=== PATIENT | female | born 1975 | race Caucasian/White ===

== ENCOUNTER 2018-02-03 05:21 | Day surgery (SDC) | payer BC, SELFPAY ==
[2018-01-29 11:53] LABS: Hematocrit 44.8 % (37-47); Hemoglobin 15.2 g/dl (12.0-15.0); Mean Corp Hgb Conc 33.9 g/gl (32-36); Mean Corpuscular Hgb 30.7 pg (27.0-32.0); Mean Corpuscular Volume 90.5 fL (81-99); Mean Platelet Vol. 9.3 fl (6.2-12.0); Platelet Count 340 K/mm3 (150-450); RBC Distribution Width CV 12.7 % (11.6-14.6); RBC Distribution Width SD 41.4 fl (35.1-43.9); Red Blood Count 4.95 M/mm3 (4.2-5.4); Scan Indicated on CBC? Y/N NO; White Blood Count 7.8 K/mm3 (4.4-11.0)
[2018-01-29 11:58] LABS: International Normalized Ratio 1.1; Prothrombin Time (Protime)PT. 14.3 SECONDS (11.7-14.9)
[2018-01-29 11:59] LABS: Partial Thromboplast Time 31.6 Seconds (24.1-36.2)
[2018-01-29 12:26] LABS: Creatinine, Serum 0.76 mg/dL (0.55-1.02); EST Glomerular Filtration Rate 90 mL/min (>60); Est Glom Filt Rate - Afr Amer 108 mL/min (>60)
--- NOTE | 2018-02-02 19:02 | PCM.HP.BLA ---
History and Physical Date of Admission: 02/03/18 Surgical History and Physical Rebekah Manzo, a 42 year old female 3 0 0 0 3, presents for Robotic Assisted Vaginal Hysterectomy/ BS/Possible Right Oophrectomy on February 03, 2018 at 7:30. -- Dysmenorrhea; Menorrhagia s/p ablation -- Heavy, painful menses. States this started over 2 years ago. The first couple days of her period is very painful. Almost unbearable. States the bleeding is heavier, changing a pad q 3 hours on the heavy days. She denies painful or problematic bowel issues. UTERUS: 10.2 x 6.1 x 5.6 cm; RIGHT OVARY: 1.7 x 1.5 x 1.5 cm; LEFT OVARY: 2.1 x 1.7 x 2.1 cm. Since ablation, she has pain that occurs monthly, correlating with her menses, on her R side. It radiates down her leg, to her knee. It is worsening. Prior tubal ligation also. C section deliveries. Occurs only when she is bleeding during her cycle. NSAIDs are not effective, barely take the edge off. Pain is worsening, becoming unbearable. She has tried OCP. ablation without relief of pain. 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 MEDICATIONS HISTORY: Current medications prescribed by our practice are: 1. albuterol sulfate HFA 90 mcg/actuation aerosol inhaler, 2 puffs q 4 hr prn ALLERGIES: NKA and No Known Drug Allergies Infections - Chicken pox Illnesses - Asthma, carpal tunnel and both wrists Accidents - no injuries of consequence Hospitalizations - Childbirth depression, anxiety; Review of Systems: GENERAL - Denies fever, or chills SKIN - Denies skin changes EYES - Denies visual changes EARS - Denies difficulty hearing NOSE - Denies nasal congestion or bleeding MOUTH - Denies sore throat or difficulty swallowing NECK - Denies pain or swelling RESPIRATORY - Denies shortness of breath or wheezing CARDIOVASCULAR - Denies palpitations or chest pain GASTROINTESTINAL - Denies nausea, vomiting, diarrhea, constipation GENITOURINARY - Denies dysuria, frequency of urination, incontinence of urine MUSCULOSKELETAL - Denies joint or muscle pain NEUROLOGICAL - Denies localized numbness or weakness PSYCHIATRIC - Denies depression or anxiety ENDOCRINE - Denies heat or cold intolerance, weight loss or gain HEMATO-IMMUNOLOGIC - Denies excessive bleeding with cuts SOCIAL HISTORY: Alcohol Use - RARELY Smoking - quit, 2012 Diet - no special diet Lifestyle - Remarried Exercise - none Seat Belt Use - most of the time 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 Mother: age 41 and Breast cancer. MENSTRUAL HISTORY: LMP Known?- Approximate-Month KnownAmount/Duration - 7 days, Regularity - Regular, Frequency - monthly days, LMP - 01/20/18, Age Onset Menarche - 14 PAST PREGNANCIES: Total Pregnancies - 3; Full Term Pregnancies - 3; Premature - 0; Abortions, Induced - 0; Abortions, Spontaneous - 0; Ectopics - 0; Multiple Births - 0; Living Children - 3 SURGICAL HISTORY: 1. , x 2 ; - 2. 05/17/2009 and Tubal ; Nidia Berrios M.D. - 3. 12/09/2015 hysteroscopy, D and C, Novasure ablation ; Nidia Berrios M.D. - PHYSICAL EXAM BP- 132/82 Sitting, Left arm, regular cuff Weight- 192.10081 lbs Height- 66 inch BMI:31.05 CONSTITUTIONAL - NAD, well nourished, and well developed HEENT - Normocephalic, PERRLA, EOMI NECK - no nuchal rigidity EXTREMITIES - No edema or calf tenderness NEUROLOGICAL - Cranial nerves II-XII grossly intact PSYCHIATRIC - A and O to time, place, person, mood and affect External Genital Vagina - non-tender without lesions Urethra/Urethral Meatus - non-tender Bladder - non-tender Vagina - vaginal parsons are pink and moist without loss of rugae and no evidence of atropy and scant blood noted Cervix - without cervical motion tenderness and has normal size and features without evident lesions Uterus - normal size, mobile and no tenderness Adnexa - no tenderness, no masses and mobile ASSESSMENT/PLAN: 1. Dysmenorrhea, Unspecified, Excessive bleeding in the premenopausal period, Other Specified Counseling and Other Specified Irregular Menstruation S/P endometrial ablation and trial of OCP, Maryam. With continued pelvic pain, present nearly continually. Reviewed options for hysterectomy. All C section deliveries, prior BTO. No future fertility desired. Discussed RAVH vs VILLA. Prefers to proceed with RAVH, bilateral salpingectomy NESTOR. Has cyclic RLQ pain so will also do RSO if possible. Discussed RBAs including possible need for laparotomy.
[2018-02-03] VITALS (13 sets, daily range): BP systolic 102–124; BP diastolic 58–83; PULSE 46–98; RESP 14–18; TEMP 36.2–36.7; O2SAT 95–100; BMI 31.5
--- NOTE | 2018-02-03 | HYST_PTH ---
PATIENT: POHELIA KOCH [place] [facility] [place][id number] AGE/SX: 42/F ROOM: RE02/03/[address]: Dr. Florian Warren MD : [id number] BED: DIS: 02/04/2018 SPEC #: [id number] RECD: 02/03/18 14:31 STATUS: CHANDANA NIRAV #: [id number] HERMELINDO: 02/03/18 00:[address]: Florian Warren DEPT: SURGICAL PATHOLOGY RECD BY: Joe Membreno ENTERED: 02/03/18 14:31 SP TYPE: HYSTERECT OTHR DR: Dr. Luiz Person DO Tissues: Uterus, NOS Procedures: Surgery Specimen Level V HEADER OPERATION: Laparoscopic robotic vaginal hysterectomy, bilateral salpinge PRE-OP DIAGNOSIS: Dysmenorrhea TISSUE SUBMITTED: Uterus, cervix, bilateral fallopian tubes and right ovary MICROSCOPIC DIAGNOSIS Uterus, cervix, bilateral fallopian tubes and right ovary: Cervix - mild chronic cystic cervicitis. Endometrium - proliferative endometrium to mildly disorder proliferative endometrium. Myometrium - diffuse adenomyosis. - Intramural leiomyoma (1 cm in greatest dimension). Bilateral fallopian tubes - no pathologic diagnosis. Right ovary - physiologic follicular and corpus luteum cysts. Left paratubal cyst. SJ:sp 02/04/18 MICROSCOPIC DESCRIPTION Slides are reviewed. GROSS DESCRIPTION Received in fixative is one container labeled with the patient's name and designated uterus, cervix, bilateral fallopian tube, right ovary. The specimen consists of a hysterectomy specimen consisting of uterus with cervix attached, bilateral fallopian tube and right ovary. The uterus with cervix weighs 190 gm and measures 13 x 9 x 6.5 cm. The serosal surface is hinds glistening. The ectocervical mucosa is unremarkable. The external os is slit-like in contour. The endocervical canal measures 3.5 cm in length and the endocervical mucosa is hinds glistening and unremarkable. The endometrial cavity is narrow and shows a focal area of fibrosis and measures 5.5 cm in length and up to 1.5 cm in width. The endometrium is hinds, glistening and measures less than 0.1 cm in thickness. Sections of the uterine wall reveal one hinds nodular mass measuring 1 cm in greatest dimension. Sections of the uterine wall also revealed ill-defined nodular masses and trabeculated cut surface consistent with adenomyosis. The uterine wall measures up to 5.0 cm in thickness. The right fallopian tube measures 7.5 cm in length and up to 1 cm in diameter. Fimbrial end is identified. Fallopian tube shows 2 Filshie clips which appear intact. Sections reveal unremarkable cut surface. The soft cystic right ovary measures 2.5 x 2.5 x 2 cm. Sections reveal multiple cysts filled with clear fluid and one hemorrhagic cyst. The largest cyst measures 1 cm in greatest dimension. The left fallopian tube is similar compared to right and measures 7 cm in length and 0.7 cm in diameter. One bare tubular cyst is noted measuring 0.5 cm in greatest dimension. Two Filshie clips are noted which appear intact. Sections reveal unremarkable cut surface. Manager Business Planning sections are submitted in 10 cassettes as follows: 1 - anterior cervix, 2 - posterior cervix, 3 & 4 - anterior uterine wall, 5 & 6 - posterior uterine wall, 7 - nodular mass, 8 - right fallopian tube, 9 - right ovary, 10 - left fallopian tube and paratubal cyst. EMELY:mery 02/03/18 TC: 5 CPT: 50873
[2018-02-03] MEDS: Gabapentin 600 MG Tablet PO (05:50)
[2018-02-03] MEDS: Acetaminophen 500 MG Tablet 1000 MG PO (05:50)
[2018-02-03] MEDS: Scopolamine 1mg/72hr Patch 1 PATCH TRANSDERM. (07:30)
[2018-02-03] MEDS: Ondansetron 4 MG/2 ML Vial IV (07:30)
--- NOTE | 2018-02-03 07:38 | PCM.OP.BLANK ---
Operative Report Date of Procedure: 02/03/18 Surgeon: Florian Warren MD, FACOG Credit Verifier: DOREEN Nugent Anesthesia: Jaime Cordova CRNA Type of anesthesia: General Endotracheal Procedure: Robotic Assisted Vaginal Hysterectomy and Bilateral Salpingectomy; Right Oophrectomy; Lysis of Adhesions Pre-Op: Dysmenorrhea, Menorrhagia Post-Op: Dysmenorrhea, Menorrhagia, Adhesions Findings: 8 cm uterus with normal appearing tubes and ovaries bilaterally; evidence of prior tubal ligation with Filshie clips; dense adhesions of omentum to left anterior abdominal wall; dense adhesions of uterus to anterior abdominal wall and bladder; adhesions of fallopian tubes to right and left pelvic sidewalls. Indication: This is a 42 year old multiparous patient who has been having problems with severe dysmenorrhea and heavy menses despite having had a prior endometrial ablation. She had multiple sections. Conservative measures have not been helpful. The patient has been counseled regarding the risks, benefits and alternatives of this procedure including the possibility of bleeding, infection, and injury to surrounding structures such as bowel bladder and all questions were answered. She understands that if BSO is needed that she will need to be on HRT for an indefinite period of time. Procedure: Pt was taken to the operating room where after induction of general anesthesia the patient was prepped and draped in the usual sterile fashion and placed on a non-slip Huggy-u-vac device. Trendendelenburg test was satisfactory. Bladder was drained of urine with a Hough catheter which was left in place. Anterior cervix grasped and cervix was dilated to about 3-4 mm. Uterus sounded to 4-5 cms with evidence of prior endometrial ablation. 0-Vicryl suture was placed at the 3:00 and 9:00 position of the cervix. A medium V-care device was then placed in the uterus to allow uterine manipulation and attention was turned to the laparoscopic portion of the procedure. Ropivocaine 0.5% was injected approximately 2-3 cm superior to the umbilicus and an 8 mm robotic camera port was introduced directly with intraperitoneal placement confirmed with insufflation. 8 mm robotic side ports were introduced under direct visualization approximately 11-13 cm lateral and 2 cm inferior to the umbilical port. A 5 mm left upper quadrant port was introduced and airseal insufflation with CO2 was started. The above findings were noted. Robot was docked without difficulty and attention turned to the robotic portion of the procedure. Approximately 29 cc of Ropivicaine was used. Omental adhesions were taken down with sharp dissection using bipolar and monopolar cautery. Bilateral infundibulocal ligaments/mesosalpinx were ligated with 45 wan bipolar coagulation to the level of the round ligament. The posterior aspect of the cervix was identified and then opened for about 1 cm using 25 watt monopolar cautery identifying the V-care device which had been placed vaginally. Bladder flap was developed taking down extremely dense adhesions and eventually opened and divided to the level of the round ligaments using monopolar cautery. Progressive bites were then ligated on each side of the cervix with 35 wan bipolar cautery to the uterine arteries. The anterior vaginal mucosa was then entered and cervix circumscribed with monopolar cautery. Uterus and attached ovary and tubes were then removed through the vagina. Vaginal cuff was closed first with 0-Vicryl Seb stitches placed at each angle followed by closure of the mid-cuff with 0-Monocryl V-lock suture in two layers. Pelvis was copiously irrigated with saline and the right ureter was noted to peristalse. FloSeal was placed across the raw area of the anterior abdominal wall; robot was undocked and trocars were removed with as much gas as possible. Incisions were closed with 4-0 Monocryl subcuticular sutures and incisions covered with steri-strips and opsite dressing. The patient tolerated the procedure well and was taken to the recovery room in satisfactory condition. Sponge, instruments and needle counts were all correct. There were no apparent complications of the surgery. Cefotan 2 gms IV was given prior to the procedure. Estimated Blood Loss: Minimal Specimen to Pathology: Uterus and bilateral tubes and right ovary
--- NOTE | 2018-02-03 07:39 | DCINST_ITS ---
Discharge Diet: No Restrictions Discharge Activity: Return to Normal Activity, May Not Drive - while taking narcotic pain medications., May Shower May resume sexual activity in: 6-8 weeks Call your doctor if your incision/area has: Continuous Slow Oozing, Sudden Increased Bleeding, Increased Pain/ Swelling, Increased Redness, Foul Smelling Discharge Call your doctor if you observe: Fever of 101 or Higher, Inability to urinate, Inability to have a bowel movement, Using more than one pad per hour Allergies/Adverse Reactions: Allergies No Known Allergies Allergy (Verified 01/27/18 11:00) Medications to take at Discharge Albuterol Inhaler [Ventolin Hfa (SP)] 1 - 2 puff INHALATION Q4H PRN PRN 12/06/15 Loratadine [Claritin] 10 mg PO DAILY 12/06/15 Magnesium 500 mg PO DAILY 01/27/18 Docusate Sodium [Colace] 100 mg PO BID PRN PRN #60 cap 02/03/18 Oxycodone [Oxyir] 5 mg PO Q6H PRN PRN 7 Days #20 tab 02/03/18 The following prescriptions were given: Oxycodone [Oxyir] 5 mg PO Q6H PRN PRN 7 Days #20 tab PRN Reason: Severe Pain (-01/01) Docusate Sodium [Colace] 100 mg PO BID PRN PRN #60 cap PRN Reason: Constipation Primary Care Physician: Luiz Person DO [Primary Care Provider] - Test Results: Test results from this visit will be discussed in further detail at your follow- up appointment, if applicable. Please Follow Up With: Florian Warren MD When: 2-3 weeks
[2018-02-03] MEDS: Lubricating Jelly 60 GM Tube 30 GM TOPICAL (07:52)
[2018-02-03] MEDS: Lidocaine/D5W 2,000 MG/250 ML IV.SOLN 26.61 MG IV (07:55)
[2018-02-03] MEDS: Ropivacaine 0.5% 30 ML Vial (08:05)
[2018-02-03 11:51] LABS: Bedside Glucose 124 mg/dL (70-110)
[2018-02-03] MEDS: Ketorolac 30 MG/ML Syringe IV ×3 (14:05→23:39)
[2018-02-03] MEDS: Lactated Ringers 1,000 ML 125 ML IV ×2 (14:06→22:46)
[2018-02-03] MEDS: Loratadine 10 MG Tablet PO (15:15)
[2018-02-03] MEDS: Enoxaparin 30 MG/0.3 ML Syringe SC (18:12)
[2018-02-04 05:40] VITALS: BP 106/66; PULSE 66; RESP 16; TEMP 36.7; O2SAT 97
[2018-02-04] MEDS: Ketorolac 30 MG/ML Syringe IV (05:41)
[2018-02-04 05:48] LABS: Mean Corp Hgb Conc 32.4 g/gl (32-36); Mean Corpuscular Hgb 30.9 pg (27.0-32.0); Mean Corpuscular Volume 95.4 fL (81-99); Mean Platelet Vol. 8.8 fl (6.2-12.0); Platelet Count 238 K/mm3 (150-450); Red Blood Count 3.88 M/mm3 (4.2-5.4); White Blood Count 11.4 K/mm3 (4.4-11.0)
[2018-02-04 05:53] LABS: Scan Indicated on CBC? Y/N NO
[2018-02-04 06:22] LABS: Creatinine, Serum 0.89 mg/dL (0.55-1.02); EST Glomerular Filtration Rate 74 mL/min (>60); Est Glom Filt Rate - Afr Amer 90 mL/min (>60); Estimated Creatinine Clearance 77.87 ml/min
[2018-02-04 06:55] VITALS: O2SAT 97
[2018-02-04] MEDS: oxyCODONE 5 MG Tablet PO ×2 (07:54→13:33)
--- NOTE | 2018-02-04 08:38 | PCM.PN.OB ---
Subjective: Patient without complaints. Tolerating diet well. Able to void on own. Minimal flatus reported yet. - Physical Exam Vital Signs Temp Pulse Resp BP Pulse Ox 98.0 F 66 16 106/66 97 02/04/18 05:40 02/04/18 05:40 02/04/18 05:40 02/04/18 05:40 02/04/18 06:55 Oxygen Flow Rate (L/min) 2 Oxygen Delivery Method Room Air Weight: 195 lb 8.8 oz Body Mass Index (BMI) 31.5 Finger Stick Blood Glucose 124 Intake and Output for Last 24 Hours 02/02/18 02/03/18 02/04/18 23:59 23:59 23:59 Intake Total 1842 / 1842 743 / 743 Output Total 1200 / 1200 500 / 500 Balance 642 / 642 243 / 243 Laboratory Tests Past 24 Hrs 02/04/18 02/04/18 05:30 05:30 WBC 11.4 H RBC 3.88 L Hgb 12.0 Hct 37.0 MCV 95.4 MCH 30.9 MCHC 32.4 RDW 13.0 RDW Differential 44.0 H Plt Count 238 MPV 8.8 Creatinine 0.89 Estim Creat Clear Calc 77.87 Est GFR (MDRD) Af Amer 90 Est GFR (MDRD) Non-Af 74 POC Glucose 02/03/18 11:47 POC Glucose 124 H Wounds are clean, dry, intact. Good urine output. Hemoglobin and creatinine okay. Medical Necessity - Tobacco Use Smoking Status: Current every day smoker Assessment/Plan Doing well postoperative day #1 status post robotic assisted vaginal hysterectomy, bilateral salpingectomy, right oophrectomy. Will release to home later today.
[2018-02-04 10:00] VITALS: BP 106/63; PULSE 46; RESP 18; TEMP 37.1; O2SAT 97
[2018-02-04] MEDS: Loratadine 10 MG Tablet PO (10:03)
[2018-02-04] MEDS: HYDROmorphone 1 MG/ML Syringe IV (10:06)
[2018-02-04] MEDS: 0.9% NaCl Peripheral Flush Adult/Peds IV (10:06)
--- NOTE | 2018-02-04 11:07 | PCA ---
pt out walking in the [place]
[2018-02-04] MEDS: Ketorolac 10 MG Tablet PO (12:49)
[2018-02-04 13:36] VITALS: BP 118/57; PULSE 60; RESP 18; TEMP 36.7; O2SAT 95
[2018-02-04 14:00] VITALS: BP 118/57; PULSE 60; RESP 18; TEMP 36.7; O2SAT 95
== END 2018-02-04 14:00 | disposition home or self-care (01) ==
LOC: SDC 05:22 → AC 05:22 → MS2 08:28
PROVIDERS: Family Provider Student in an Organized Health Care Education/Training Program; PCP Student in an Organized Health Care Education/Training Program; Referring Provider Obstetrics & Gynecology; Visit Provider Obstetrics & Gynecology
PROC: 0UT90ZZ Resection of Uterus, Open Approach (ICD-10-PCS; CPT 58552; principal; 2018-02-03 07:10)
DX: D25.1 Intramural leiomyoma of uterus (principal); N83.11 Corpus luteum cyst of right ovary; N72 Inflammatory disease of cervix uteri; N80.0 Endometriosis of uterus; N83.8 Other noninflammatory disorders of ovary, fallopian tube and broad ligament; J45.909 Unspecified asthma, uncomplicated; F17.200 Nicotine dependence, unspecified, uncomplicated; Z79.899 Other long term (current) drug therapy; Z98.51 Tubal ligation status
CPT/HCPCS: 00840; 58552; S2900; 36415; 82565; 82962; 85027; 85610; 85730; 86850; 86900; 88307; J7050; J7120; A4216; J0330; J2405

== ENCOUNTER 2018-09-22 18:28 | Emergency (ER) | payer BC, SELFPAY ==
[2018-09-22 18:28] VITALS: BP 149/77; PULSE 62; RESP 15; TEMP 36.4; O2SAT 99; BMI 28.5
--- NOTE | 2018-09-22 19:53 | ED.DCSUM_ITS ---
- ER Visit Summary Date of Service: 09/22/18 Chief Complaint: Rash and hives History of Present Illness: The patient is a 43 F who presents with rash and hives that is been getting progressively worse over the past 3 days. Patient states she was recently treated for poison mary lou with triamcinolone cream. Jacky abner states that since that time she has developed hives over her upper extremities, chest, abdomen, and back. Patient admits to some mild tightness in her throat but denies any difficulty breathing or difficulty swallowing. Patient denies any chest pain or shortness of breath. Patient denies any nausea or vomiting. Patient states the rash is pruritic. Patient states she has been taking Benadryl with no relief. Physical Examination: Vital signs are stable. Patient is afebrile. Patient is in no acute distress. Skin is warm and dry. There are diffuse urticarial le sions noted over the upper extremities, chest, abdomen, and back. Oral mucosa is pink and moist. Oropharynx is clear. Airway is patent. Neck is supple. Trachea is midline. There is no JVD noted. Heart was regular rate and rhythm. Lungs are clear and equal bilaterally. Abdomen is soft. Bowel sounds are normal. There is no tenderness. Cranial nerves II through XII are intact. There are no focal motor or sensory deficits noted. Emergency Department Course and Treatment: Patient was given a dose of prednisone here. Patient was given a prescription for prednisone. Patient was instructed to stop using the triamcinolone cream. Patient was instructed to use Benadryl as needed for any itching. Patient was instructed to follow-up with her primary care physician in 5 to 7 days. Patient understood and was agreeable with the plan. All questions were answered. Disposition: Discharge home Impression: Urticaria This note was generated with [employer] dictation software. It may contain incorrect words, spelling, and punctuation that were not noted in review of the chart prior to signing ED Disposition - Plan for ED Patient: Disposition: Home or Assisted Living Diagnosis: Urticaria Instructions: ALLERGIC REACTION, Other (General) Prescriptions: Prednisone [Deltasone] 60 mg PO DAILY #15 tab Prescription Printed Referrals: Luiz Person DO [Primary Care Provider] - 5-7 Days
[2018-09-22] MEDS: predniSONE 20 MG Tablet 60 MG PO (20:16)
[2018-09-22 20:18] VITALS: BP 123/76
== END 2018-09-22 20:23 | disposition home or self-care (01) ==
PROVIDERS: Emergency Provider Emergency Medicine; Family Provider Student in an Organized Health Care Education/Training Program; PCP Student in an Organized Health Care Education/Training Program
DX: L50.9 Urticaria, unspecified (principal); J02.9 Acute pharyngitis, unspecified; R68.83 Chills (without fever); J45.909 Unspecified asthma, uncomplicated
CPT/HCPCS: 99283